=== PATIENT | female | born 1955 | race Caucasian/White ===

== ENCOUNTER 2016-08-03 11:57 | Day surgery (SDC) | payer OTHER ==
[~2016-08-03] VITALS: Ht 162.6 cm; Wt 107.0 kg
[~2016-08-03 11:57] MED LIST: 0.9% Sodium Chloride 1,000 ML IV SCH; ALBU8.5H2 INHALATION; CYCL10TA9 PO; IBUP800T28 PO; NAPR220C11 PO; OXYB5TAB PO; PANT40TA3 PO; Sodium Chloride LOK Flush 10 mL Syringe IV PRN; fentaNYL-PF 50 mCg/mL 2 mL Inj IVPUSH PRN
[2016-08-03 12:34] VITALS: BP 119/76; PULSE 67; RESP 16; O2SAT 94
[2016-08-03 13:33] VITALS: BP 105/70; PULSE 65; RESP 14; O2SAT 93
[2016-08-03 13:46] VITALS: BP 104/72; PULSE 69; RESP 14; O2SAT 95
--- NOTE | 2016-08-03 13:55 | ENDO ---
[address] [address] ENDOSCOPY PROCEDURE PATIENT: INDIRA SIGALA : 1955 MR#: [id number] ADMIT: 08/03/2016 JOB ID: [id number] DATE: 08/03/2016 PROCEDURE: Colonoscopy. INDICATIONS: Screening. The patient's ASA classification is 2. Mallampati score is 2. MEDICATIONS: 1. Versed 3 mg. 2. Fentanyl 100 mcg. INSTRUMENT USED: PCF H 180 AL. PREPARATION QUALITY: Was good. PROCEDURE DETAILS: After informed consent was obtained, the patient was brought into the GI suite, where she was placed on oxygen via nasal cannula and monitored with continuous pulse oximeter, telemetry, and blood pressure monitoring. A time-out was performed. Then, she was placed in the left lateral decubitus position and medications were administered for sedation. Digital rectal examination was performed, which was unremarkable. The colonoscope was then inserted into the rectum and advanced under direct visualization to the cecum, which was identified by the presence of the ileocecal valve and appendiceal orifice. Once the cecum was reached, the colonoscope was withdrawn back into the rectum as the mucosa and lumen were examined. In the rectum, retroflexion was performed. Following retroflexion, remaining air in the rectum was suctioned, and the procedure was completed. FINDINGS: 1. In the transverse colon, there was a diminutive polyp that was removed cold biopsy forceps. 2. Scattered diverticula were seen throughout the sigmoid colon. 3. Retroflexed views in the rectum revealed moderate-sized internal hemorrhoids. IMPRESSION: 1. Transverse colon polyp. 2. Left sigmoid diverticulosis. 3. Internal hemorrhoids. RECOMMENDATIONS: 1. Fiber rich diet. 2. Repeat colonoscopy pending polyp pathology results. COMPLICATIONS: None. ESTIMATED BLOOD LOSS: Less than 5 mL.
--- NOTE | 2016-08-06 11:38 | PATH ---
SURGICAL PATHOLOGY Attending Physician:Di Ruiz CASE STATUS: Signed Out PATIENT NAME: INDIRA SIGALA PID: [id number] : 1955 DATE COLLECTED:08/03/2016 20:24 SPECIMEN: Colon, Biopsy CLINICAL HISTORY: 1). TRANSVERSE POLYP FINAL DIAGNOSIS: 1.TRANSVERSE COLON POLYP: HYPERPLASTIC POLYP INVOLVING BOTH BIOPSY FRAGMENTS. ICD10 CODE K63.5 GROSS DESCRIPTION: The specimen is received in one formalin filled container labeled with the patient's name, sublabeled "transverse polyp" and consists of 2 portions of tissue which aggregate to 0.3 x 0.3 x 0.2 CM. The specimen is entirely submitted in one cassette. 08/03/2016 DAC MICRO DESCRIPTION: See diagnosis. ICD-9 CODES: CPT CODES: 1: 50205 Electronically Signed Out Sukhwinder Suazo MD [facility] Pathology [facility] [address], [place] [address] Technical component performed at [facility], [facility] [address], [place], [address]
== END 2016-08-03 23:59 | disposition home or self-care (01) ==
LOC: END 11:57
PROVIDERS: ATTEND Internal Medicine Gastroenterology
DX: Z12.11 Encounter for screening for malignant neoplasm of colon (principal); K63.5 Polyp of colon; K57.30 Diverticulosis of large intestine without perforation or abscess without bleeding; K64.8 Other hemorrhoids; E66.9 Obesity, unspecified; Z68.35 Body mass index [BMI] 35.0-35.9, adult; Z87.891 Personal history of nicotine dependence
CPT/HCPCS: 45380; G0500; J2250; J3010; J7030